=== PATIENT | male | born 1975 | race Hispanic/Latino ===

== ENCOUNTER 2020-01-10 07:26 | Emergency (ER) | payer SELFPAY ==
[2020-01-10 08:00] LABS: #Basophils 0.1 thou/uL (0.0-0.2); #Eosinphils 0.1 thou/uL (0.0-0.7); #Lymphocytes 0.8 thou/uL (1.20-3.40); #Monocytes 0.5 thou/uL (0.11-0.59); #Neutrophils 2.2 thou/uL (1.40-6.50); %Basophils 2.2 % (0.0-1.0); %Eosinophils 3.1 % (0.0-10.0); %Lymphocytes 22.8 % (21.0-51.0); %Monocytes 13.3 % (0.0-10.0); %Neutrophils 58.5 % (42.0-75.0); Hemoglobin 10.9 g/dL (14.0-18.0); Mean Corpuscular HGB CONC 29.7 g/dL (32.0-36.0); Mean Corpuscular Hemoglobin 26.4 pg (27.0-31.0); Mean Corpuscular Volume 88.7 fL (78.0-98.0); Mean Platelet Volume 12.3 fL (7.4-10.4); Platelet Count 116 thou/uL (130-400); RBC Distribution Width 19.1 % (11.5-14.5); Red Blood Cell (RBC) Count 4.12 mill/uL (4.70-6.10); White Blood Cell (WBC) Count 3.7 thou/uL (4.8-10.8)
--- NOTE | 2020-01-10 08:00 | CT ---
CT of thehead: 01/10/2020 COMPARISON:None available HISTORY:Altered mental status TECHNIQUE: Serial axial CT imaging at5 mm intervals from thevertex through skull base without contras t. Findings:There is polypoid mucosal thickening within the left maxillary sinus. No displaced calvarial fracture. No intracranial hemorrhage, midline shift, mass effect, or ventricular enlargement Impression:No intracranial hemorrhage.
[2020-01-10 08:05] LABS: ALT (SGPT) 28 U/L (8-55); AST (SGOT) 41 U/L (5-34); Acetaminophen Less than 6.0 mcg/mL (10.0-30.0); Albumin 3.4 g/dL (3.5-5.0); Alcohol Less than 10 mg/dL (Less than 10); Alkaline Phosphatase 58 U/L (40-110); Anion Gap 16 mmol/L (10-20); BUN (Urea Nitrogen) 10 mg/dL (8.9-20.6); Bilirubin, Total 1.1 mg/dL (0.2-1.2); Calc. Creatinine Clearance 0 mL/min (70-130); Calcium 9.1 mg/dL (7.8-10.44); Carbon Dioxide 22 mmol/L (22-29); Chloride 108 mmol/L (98-107); Estimated GFR-MDRD 85; Globulin 4.4 g/dL (2.4-3.5); Glucose 125 mg/dL (70-105); INR-International Normal Ratio 1.5; Protein, Total 7.8 g/dL (6.0-8.3); Salicylate Less than 8.0 mg/dL (15.0-30.0); Sodium 142 mmol/L (136-145)
[2020-01-10 08:06] LABS: PTT 34.8 sec (22.9-36.1)
[2020-01-10] MEDS ORDERED: Dextrose 5 %-0.45 % NaCl 1,000 ML ONE (08:06)
[2020-01-10] MEDS ORDERED: Thiamine HCl 200 MG/2 ML VIAL ONE (08:06)
[2020-01-10] MEDS ORDERED: Multivit, Adult Inj 10 ML VIAL ONE (08:08)
[2020-01-10 08:12] LABS: Anisocytosis SLIGHT = 6-15 cells (100X) (0-5/hpf); Platelet Morphology Comment Appears Decreased; Poikilocytosis SLIGHT = 6-15 cells (100X) (0-5/hpf)
--- NOTE | 2020-01-10 08:12 | RAD ---
EXAM: CHEST ONE VIEW HISTORY: Altered mental status. COMPARISON: None FINDINGS: Cardiac silhouette is magnified by projection. Pulmonary vasculature is within normal limits. Focal e ventration of the medial right hemidiaphragm is seen. The lungs are clear. The osseous structures are intact. IMPRESSION: No acute cardiopulmonary process.
[2020-01-10 08:17] LABS: Bilirubin Negative (Negative); Blood, Urine Negative (Negative); Clarity Clear (Clear); Glucose, Urine (Dipstick) Negative (Negative); Ketone, Urine Negative (Negative); Leukocyte Negative (Negative); Nitrite Negative (Negative); Protein, Urine (Dipstick) Negative (Neg-Trace); Specific Gravity, Urine 1.025 (1.005-1.030); pH, Urine 6.5 (5.0-9.0)
[2020-01-10 08:35] LABS: Amphetamine Not Detected (NotDetected); Benzodiazepine Screen Not Detected (NotDetected); Cocaine Metabolite Screen Not Detected (NotDetected); Methamphetamine Not Detected (NotDetected); Opiate Screen Not Detected (NotDetected); Phencyclidine (PCP) Not Detected (NotDetected); THC/Cannabinoid Screen Not Detected (NotDetected)
[2020-01-10 08:36] LABS: Barbiturates Screen Not Detected (NotDetected); Medtox Control Line Valid? VALID (VALID); Methadone Not Detected (NotDetected); Oxycodone Screen Not Detected (NotDetected); Tricyclic Screen Not Detected (NotDetected)
[2020-01-10 08:40] LABS: Base Excess-Venous -0.7 mmol/L (-2.0 to 3.0); Bicarbonate (HCO3v) 23.7 mmol/L (22.0-28.0); CO2 Tension (PvCO2) 37.2 mmHg (40.0-50.0); Calcium, Ionized 1.18 mmol/L (1.15-1.33); Chloride 110 mmol/L (98-107); Potassium 4.4 mmol/L (3.5-5.1); Sodium 143 mmol/L (138-145); T. Carbon Dioxide 24.8 mmol/L (22.0-28.0); vO2 Saturation-calc 98.6 % (60.0-85.0)
== END 2020-01-10 09:15 | disposition short-term general hospital (02) ==
LOC: MADERS 07:26
DX: R41.82 Altered mental status, unspecified (principal); G93.40 Encephalopathy, unspecified; E11.9 Type 2 diabetes mellitus without complications; K21.9 Gastro-esophageal reflux disease without esophagitis; I11.0 Hypertensive heart disease with heart failure; I50.9 Heart failure, unspecified; D64.9 Anemia, unspecified; G47.30 Sleep apnea, unspecified; Z79.84 Long term (current) use of oral hypoglycemic drugs; Z79.899 Other long term (current) drug therapy
CPT/HCPCS: 51702; 70450; 71045; 80053; 80306; 80307; 81003; 82330; 82550; 82803; 83605; 83690; 84443; 84484; 85025; 85610; 85730; 87040; 93005; J3411; J7042

== ENCOUNTER 2022-02-13 10:18 | Emergency (ER) | payer SELFPAY ==
[2022-02-13] MEDS ORDERED: Furosemide 40 MG/4 ML VIAL ONE (11:22)
[2022-02-13 12:28] LABS: ALT (SGPT) 68 U/L (8-55); AST (SGOT) 109 U/L (5-34); Albumin 3.1 g/dL (3.5-5.0); Alkaline Phosphatase 87 U/L (40-110); Anion Gap 16 mmol/L (10-20); BUN (Urea Nitrogen) 8 mg/dL (8.9-20.6); Bilirubin, Total 2.1 mg/dL (0.2-1.2); Calc. Creatinine Clearance 0 mL/min (70-130); Calcium 8.3 mg/dL (7.8-10.44); Carbon Dioxide 23 mmol/L (22-29); Chloride 104 mmol/L (98-107); Estimated GFR 114; Globulin 4.1 g/dL (2.4-3.5); Glucose 100 mg/dL (70-105); Potassium 4.1 mmol/L (3.5-5.1); Protein, Total 7.2 g/dL (6.0-8.3); Sodium 139 mmol/L (136-145)
[2022-02-13 12:29] LABS: #Lymphocytes 0.3 thou/uL (1.20-3.40); #Monocytes 0.3 thou/uL (0.11-0.59); #Neutrophils 2.1 thou/uL (1.40-6.50); %Basophils 0.9 % (0.0-1.0); %Eosinophils 0.7 % (0.0-10.0); %Lymphocytes 12.1 % (21.0-51.0); %Monocytes 12.1 % (0.0-10.0); %Neutrophils 74.3 % (42.0-75.0); Acetaminophen Less than 10.0 mcg/mL (10.0-30.0); Alcohol 63 mg/dL (Less than 10); Anisocytosis SLIGHT = 6-15 cells (100X) (0-5/hpf); Hemoglobin 6.8 g/dL (14.0-18.0); Hypochromia SLIGHT = 6-15 cells (100X) (0-5/hpf); MDiff Complete? YES; Mean Corpuscular HGB CONC 29.9 g/dL (32.0-36.0); Mean Corpuscular Hemoglobin 22.9 pg (27.0-31.0); Mean Corpuscular Volume 76.6 fl (78.0-98.0); Mean Platelet Volume 12.3 fL (7.4-10.4); Microcytosis SLIGHT = 6-15 cells (100X) (0-5/hpf); Platelet Count 57 10x3/uL (130-400); Platelet Morphology Comment Appears Decreased; Red Blood Cell (RBC) Count 2.95 mill/uL (4.70-6.10); Salicylate Less than 8.0 mg/dL (15.0-30.0); White Blood Cell (WBC) Count 2.8 10x3/uL (4.8-10.8)
[2022-02-13 12:46] LABS: CKMB 8.1 ng/mL (0-6.6)
[2022-02-13 13:04] LABS: Bilirubin Negative (Negative); Blood, Urine Negative (Negative); Clarity Clear (Clear); Glucose, Urine (Dipstick) Negative (Negative); Ketone, Urine Negative (Negative); Leukocyte Negative (Negative); Nitrite Negative (Negative); Protein, Urine (Dipstick) Negative (Neg-Trace); Specific Gravity, Urine 1.015 (1.005-1.030); pH, Urine 6.5 (5.0-9.0)
[2022-02-13 13:23] LABS: Amphetamine Not Detected (NotDetected); Cocaine Metabolite Screen Detected (NotDetected); Methamphetamine Not Detected (NotDetected); Opiate Screen Not Detected (NotDetected); Phencyclidine (PCP) Not Detected (NotDetected); THC/Cannabinoid Screen Not Detected (NotDetected)
[2022-02-13 13:24] LABS: Barbiturates Screen Not Detected (NotDetected); Benzodiazepine Screen Not Detected (NotDetected); Medtox Control Line Valid? VALID (VALID); Methadone Not Detected (NotDetected); Oxycodone Screen Not Detected (NotDetected); Tricyclic Screen Not Detected (NotDetected)
== END 2022-02-13 16:13 | disposition short-term general hospital (02) ==
LOC: MADERS 10:18
DX: I11.0 Hypertensive heart disease with heart failure (principal); I50.9 Heart failure, unspecified; D64.9 Anemia, unspecified; R74.01 Elevation of levels of liver transaminase levels; R77.8 Other specified abnormalities of plasma proteins; R74.8 Abnormal levels of other serum enzymes; E66.01 Morbid (severe) obesity due to excess calories; F14.10 Cocaine abuse, uncomplicated; E11.9 Type 2 diabetes mellitus without complications; K21.9 Gastro-esophageal reflux disease without esophagitis; Z79.899 Other long term (current) drug therapy; Z79.84 Long term (current) use of oral hypoglycemic drugs
CPT/HCPCS: 36415; 71045; 80053; 80306; 80307; 81003; 82553; 83880; 84484; 85025; 87804; 93005; 96374; J1940